=== PATIENT | male | born 1990 | race Caucasian/White ===

== ENCOUNTER → 2022-07-28 08:26 | Outpatient (BNVA) | payer SELFPAY | PROVIDERS: Family Provider Nurse Practitioner Family; PCP Family Medicine; Visit Provider Dermatology | DX: Z00.00 Encounter for general adult medical examination without abnormal findings (principal) ==

== ENCOUNTER 2022-12-28 11:28 | Outpatient (CLI) | payer OTHER, SELFPAY ==
[2022-12-28 12:52] LABS: Sperm Progressive Motility 75 % (31-34); Viscosity Semen Droplets; Volume Semen 4.5 mL (2-5)
[2022-12-28 12:53] LABS: Pathology Referral Yes; Sperm Immotility 20 % (50-60); Sperm Non-Progressive Motility 5 % (5-10)
[2022-12-28 13:00] LABS: Side 1 23; Side 2 24; Sperm Count 23.5 mill/mL (40-160)
[2022-12-28 14:23] LABS: Side WITHIN 10% 4
== END 2022-12-28 11:29 | disposition home or self-care (01) ==
LOC: LAB 11:29
PROVIDERS: PCP Nurse Practitioner Family; Visit Provider Nurse Practitioner Family
DX: N46.9 Male infertility, unspecified (principal)
CPT/HCPCS: 80503; 89320